=== PATIENT | male | born 1995 | race Caucasian/White ===

== ENCOUNTER 2017-02-21 20:14 | Observation (INO) | payer BC ==
[~2017-02-21] VITALS: Ht 182.9 cm; Wt 85.5 kg
[2017-02-21 21:02] LABS: BASO % 0.3 % (0.0-2.0); EOS # 0.1 (0.0-0.7); EOS % 1.1 % (0-4.0); GRAN # 6.8 (1.4-6.5); GRAN % 70.4 % (42.2-75.2); HEMATOCRIT 46.5 % (36.0-47.0); HEMOGLOBIN 16.9 g/dl (12.5-16.1); LYMPH # 1.7 (1.2-3.4); LYMPH % 17.4 % (20.0-51.0); MEAN CELL VOLUME 87 fl (80.0-95.0); MEAN CORPUSCULAR HEMOGLOBIN 32 pg (26.0-32.0); MEAN CORPUSCULAR HGB CONC 36 g/dl (33.0-37.0); MEAN PLATELET VOLUME 9.9 fl (7.4-10.4); MONO % 10.6 % (1.7-9.3); PLATELET COUNT 277 K/mm3 (130-400); RED BLOOD COUNT 5.37 M/mm3 (4.20-5.60); REDCELL DISTRIBUTION WIDTH-CV 12.1 % (11.5-14.5); WHITE BLOOD COUNT 9.7 K/mm3 (4.8-10.8)
[2017-02-21 21:14] LABS: ADJUSTED CALCIUM 9.3 mg/dL (8.4-10.2); ALANINE AMINOTRANSFERASE 23 U/L (21-72); ALBUMIN 4.8 gm/dL (3.5-5.0); ALKALINE PHOSPHATASE 81 U/L (50-136); ANION GAP 16 mmol/L (7-16); BILIRUBIN,TOTAL 1.2 mg/dL (0.0-1.0); BLOOD UREA NITROGEN 10 mg/dL (9-20); CALCIUM 9.9 mg/dL (8.4-10.2); CARBON DIOXIDE 23 mmol/L (22-30); CHLORIDE 101 mmol/L (98-107); CREATININE, serum 0.99 mg/dL (0.66-1.25); GLUCOSE 87 mg/dL (74-106); LIPASE 66 U/L (23-300); POTASSIUM 3.8 mmol/L (3.4-5.0); SODIUM 140 mmol/L (137-145); TOTAL PROTEIN 8.1 gm/dL (6.4-8.2)
[2017-02-21 21:20] LABS: C-REACTIVE PROTEIN < 0.5 mg/dL (0.0-0.9)
[2017-02-22] VITALS (12 sets, daily range): BP systolic 109–129; BP diastolic 56–76; PULSE 51–81; TEMP 97.6–98.2
[2017-02-22] MEDS ORDERED: NORCO 325 MG-7.1 TAB PO (07:08)
== END 2017-02-22 16:30 | disposition home or self-care (01) ==
LOC: COL.ER 20:14 → SURG 23:03
PROVIDERS: Emergency Medicine
DX: K35.80 Unspecified acute appendicitis (principal); J45.909 Unspecified asthma, uncomplicated
CPT/HCPCS: J0330; J1100; J1335; J1885; J2270; J2405; J2704; J2710; J2765; J3010; J7030; J7120; Q9967